=== PATIENT | female | born 1965 | race Two or more races ===

== ENCOUNTER 2019-01-02 06:05 | Day surgery (SDC) | payer OTHER ==
[~2019-01-02 06:05] MED LIST: AMILODIPINE PO
== END 2019-01-02 15:25 | disposition home or self-care (01) ==
LOC: CIR.AMB 06:05
PROVIDERS: Plastic Surgery
PROC: 0H0V0ZZ Alteration of Bilateral Breast, Open Approach (ICD-10-PCS; principal; 2019-01-02 16:30)
DX: N64.81 Ptosis of breast (principal)